=== PATIENT | female | born 1940 | race Caucasian/White ===

== ENCOUNTER 2021-11-10 11:25 | Emergency (ER) | payer MEDICARE | END 2021-11-10 13:16 | disposition home or self-care (01) | LOC: ERS 11:25 | DX: S61.412A Laceration without foreign body of left hand, initial encounter (principal); S00.03XA Contusion of scalp, initial encounter; M25.511 Pain in right shoulder; I25.2 Old myocardial infarction; E11.9 Type 2 diabetes mellitus without complications; E78.5 Hyperlipidemia, unspecified; I10 Essential (primary) hypertension; Z79.899 Other long term (current) drug therapy; W19.XXXA Unspecified fall, initial encounter | CPT/HCPCS: 12002; 70450; 72125 ==

== ENCOUNTER 2022-01-22 11:08 | Outpatient (CLI) | payer MEDICARE ==
[~2022-01-22 11:08] MED LIST: Iopamidol 370 76% 100 ML VIAL ONE
== END 2022-01-22 11:09 | disposition home or self-care (01) ==
LOC: BICCT 11:08 → RAD 11:09
PROVIDERS: ATTEND Internal Medicine Cardiovascular Disease
DX: I71.2 Thoracic aortic aneurysm, without rupture (principal); I71.4 Abdominal aortic aneurysm, without rupture; R91.1 Solitary pulmonary nodule; E04.1 Nontoxic single thyroid nodule
CPT/HCPCS: 71275; Q9967

== ENCOUNTER 2022-04-28 09:41 | Emergency (ER) | payer MEDICARE ==
[2022-04-28 10:09] LABS: #Basophils 0.1 thou/uL (0.0-0.2); #Eosinphils 0.1 thou/uL (0.0-0.7); #Lymphocytes 1.4 thou/uL (1.20-3.40); #Monocytes 0.5 thou/uL (0.11-0.59); #Neutrophils 4.7 thou/uL (1.40-6.50); %Basophils 1.2 % (0.0-1.0); %Eosinophils 2.1 % (0.0-10.0); %Lymphocytes 20.2 % (21.0-51.0); %Monocytes 7.1 % (0.0-10.0); %Neutrophils 69.3 % (42.0-75.0); Hemoglobin 14.1 g/dL (12.0-16.0); Mean Corpuscular HGB CONC 34.3 g/dL (32.0-36.0); Mean Corpuscular Hemoglobin 33.8 pg (27.0-31.0); Mean Corpuscular Volume 98.6 fl (78.0-98.0); Mean Platelet Volume 5.4 fL (7.4-10.4); Platelet Count 249 10x3/uL (130-400); RBC Distribution Width 11.6 % (11.5-14.5); Red Blood Cell (RBC) Count 4.15 mill/uL (4.20-5.40); White Blood Cell (WBC) Count 6.8 10x3/uL (4.8-10.8)
[2022-04-28 11:04] LABS: ALT (SGPT) 7 U/L (8-55); AST (SGOT) 11 U/L (5-34); Albumin 4.1 g/dL (3.4-4.8); Alkaline Phosphatase 45 U/L (40-110); Anion Gap 17 mmol/L (10-20); BUN (Urea Nitrogen) 6 mg/dL (9.8-20.1); Calc. Creatinine Clearance 0 mL/min (70-130); Calcium 9.1 mg/dL (7.8-10.44); Carbon Dioxide 24 mmol/L (23-31); Chloride 85 mmol/L (98-107); Estimated GFR 76; Globulin 2.6 g/dL (2.4-3.5); Glucose 122 mg/dL (83-110); Potassium 3.6 mmol/L (3.5-5.1); Protein, Total 6.7 g/dL (5.8-8.1); Sodium 122 mmol/L (136-145)
[2022-04-28 12:39] LABS: Bacteria/HPF None Seen HPF (None Seen); Bilirubin Negative (Negative); Blood, Urine Trace (Negative); Clarity Clear (Clear); Glucose, Urine (Dipstick) Normal (Negative); Ketone, Urine 100 mg/dL (Negative); Leukocyte 25 Leu/uL (Negative); Nitrite Negative (Negative); Protein, Urine (Dipstick) 20 mg/dL (Neg-Trace); RBC/HPF 0-3 HPF (0-3); Specific Gravity, Urine 1.016 (1.002-1.036); Urobilinogen Normal mg/dL (Less than 2); WBC/HPF 0-3 HPF (0-3); pH, Urine 5.5 (5.0-9.0)
== END 2022-04-28 13:15 | disposition home or self-care (01) ==
LOC: ERS 09:41
DX: R53.1 Weakness (principal); E11.9 Type 2 diabetes mellitus without complications; I10 Essential (primary) hypertension; E78.5 Hyperlipidemia, unspecified; Z79.84 Long term (current) use of oral hypoglycemic drugs; Z79.899 Other long term (current) drug therapy
CPT/HCPCS: 36415; 70450; 71045; 80053; 81003; 81015; 84484; 85025; 93005

== ENCOUNTER 2022-05-06 16:01 | Outpatient (CLI) | payer MEDICARE ==
[2022-05-06 17:13] LABS: #Eosinphils 0.4 10x3/uL (0.0-0.5); #Monocytes 0.5 10x3/uL (0.0-1.1); #Neutrophils 5.7 10x3/uL (1.5-8.4); %Basophils 0.5 % (0.0-2.0); %Eosinophils 4.3 % (0.0-6.0); %Lymphocytes 17.7 % (18.0-47.0); %Monocytes 6.7 % (0.0-10.0); %Neutrophils 70.3 % (40.0-75.0); Hemoglobin 12.5 g/dL (12.0-15.5); Mean Corpuscular HGB CONC 34.2 g/dL (32.0-36.0); Mean Corpuscular Hemoglobin 33.1 pg (27.0-33.0); Mean Corpuscular Volume 96.6 fl (81.6-98.3); Mean Platelet Volume 8.3 fl (7.4-10.4); Platelet Count 376 10x3/uL (150-450); RBC Distribution Width 12.2 % (11.5-14.5); Red Blood Cell (RBC) Count 3.78 10x6/uL (3.90-5.03); White Blood Cell (WBC) Count 8.1 10x3/uL (3.5-10.5)
[2022-05-06 17:26] LABS: Prothrombin Time 10.9 sec (9.5-12.1)
[2022-05-06 17:40] LABS: Anion Gap 15 mmol/L (10-20); BUN (Urea Nitrogen) 11 mg/dL (9.8-20.1); Calc. Creatinine Clearance 0 mL/min (70-130); Calcium 9.9 mg/dL (7.8-10.44); Carbon Dioxide 26 mmol/L (23-31); Chloride 97 mmol/L (98-107); Estimated GFR 48; Glucose 143 mg/dL (83-110); Potassium 4.1 mmol/L (3.5-5.1); Sodium 134 mmol/L (136-145)
== END 2022-05-06 16:02 | disposition home or self-care (01) ==
LOC: LABBT 16:01
PROVIDERS: ATTEND Orthopaedic Surgery
DX: Z01.812 Encounter for preprocedural laboratory examination (principal)
CPT/HCPCS: 80048; 85025; 85610; 87081

== ENCOUNTER 2022-05-12 06:00 | Inpatient (IN) | payer MEDICARE ==
[2022-05-10 12:50] VITALS: BMI 28.1
[2022-05-12] MEDS ORDERED: fentaNYL PF 100 MCG/2 ML SYRINGE ONE ×4 (06:16→09:59)
[2022-05-12] MEDS ORDERED: Midazolam HCl 2 mg/2 ml Vial ONE (06:16)
[2022-05-12] MEDS ORDERED: Tranexamic Acid 1,000 MG/10 ML VIAL ONE (06:30)
[2022-05-12] MEDS ORDERED: Vancomycin 1 GM/200 ML (FROZEN) BAG ONE (06:30)
[2022-05-12] MEDS ORDERED: Sodium Chloride 0.9% 100 ML ONE ×2 (06:30→07:00)
[2022-05-12] MEDS ORDERED: Bupivacaine PF 0.5% 30 ML VIAL ONE (06:53)
[2022-05-12] MEDS ORDERED: PROPOFOL 200 MG/20 ML VIAL ONE (06:57)
[2022-05-12] MEDS ORDERED: Ondansetron PF 4 MG/2 ML Vial ONE (06:57)
[2022-05-12] MEDS ORDERED: Metoclopramide HCl 10 MG/2 ML VIAL ONE (06:57)
[2022-05-12] MEDS ORDERED: Esmolol 100 MG/10 ML VIAL ONE (06:57)
[2022-05-12] MEDS ORDERED: CEFAZOLIN 2 GM VIAL ONE (07:00)
[2022-05-12] MEDS ORDERED: Ropivacaine 0.5% HCl/PF (150 MG/30 ML VIAL) ONE ×2 (07:19→08:58)
[2022-05-12 07:24] LABS: SARS-CoV-2 NAA Rapid Test Not Detected (NotDetected)
[2022-05-12] MEDS ORDERED: Ondansetron PF 4 MG/2 ML Vial IVP PRN (08:15)
[2022-05-12] MEDS ORDERED: Zolpidem Tartrate 5 MG TAB PO PRN (08:15)
[2022-05-12] MEDS ORDERED: Promethazine HCl 25 MG/ML VIAL IM PRN ×2 (08:15→08:23)
[2022-05-12] MEDS ORDERED: traMADol HCl 50 MG TAB PO PRN ×2 (08:15)
[2022-05-12] MEDS ORDERED: Ropivacaine 0.2% 550 ML 550 ML NERVE BLCK SCH (08:15)
[2022-05-12] MEDS ORDERED: FENTANYL 50 MCG/ML 1 ML VIAL SLOW IVP PRN (08:18)
[2022-05-12] MEDS ORDERED: Ondansetron HCl/PF 4 MG/2 ML Vial IVP PRN (08:23)
[2022-05-12] MEDS ORDERED: Promethazine HCl 25 MG/ML VIAL IVPB PRN (08:23)
[2022-05-12] MEDS ORDERED: diphenhydrAMINE 25 MG CAP PO PRN (09:35)
[2022-05-12] MEDS ORDERED: Nitroglycerin 0.4 MG TAB (25 Tab Bottle) SL PRN (11:54)
[2022-05-12] MEDS ORDERED: Ketorolac Tromethamine 30 MG/ML VIAL IVP SCH (12:00)
[2022-05-12] MEDS: Acetaminophen 325 MG TAB PO PRN (13:14)
[2022-05-12] MEDS: HYDROcodone/Acetaminophen 10/325 mg Tablet PO PRN ×2 (17:00→21:45)
[2022-05-12] MEDS ORDERED: metFORMIN 500 MG TAB PO SCH (17:00)
[2022-05-12] MEDS: metFORMIN 500 MG TAB PO SCH (17:01)
[2022-05-12] MEDS: CEFAZOLIN 2 GM in Sodium Chloride 0.9% 100 ML IVPB SCH (17:01)
[2022-05-12] MEDS: Sodium Chloride 0.9% 1,000 ML IV SCH ×2 (17:01→21:39)
[2022-05-12] MEDS ORDERED: Vancomycin 1 GM in Premix Bag 1 BAG IVPB SCH (20:00)
[2022-05-12] MEDS ORDERED: Metoprolol Tartrate 50 MG TAB PO SCH (21:00)
[2022-05-12] MEDS ORDERED: Apixaban 2.5 MG TAB PO SCH (21:00)
[2022-05-12] MEDS: Metoprolol Tartrate 50 MG TAB PO SCH (21:46)
[2022-05-13] MEDS: CEFAZOLIN 2 GM in Sodium Chloride 0.9% 100 ML IVPB SCH (00:53)
[2022-05-13] MEDS: Acetaminophen 325 MG TAB PO PRN (00:55)
[2022-05-13] MEDS: ALPRAZolam 0.25 MG TAB PO PRN (00:55)
[2022-05-13] MEDS: Sodium Chloride 0.9% 1,000 ML IV SCH ×2 (05:19→16:55)
[2022-05-13] MEDS: Ferrous Gluconate 324 MG TAB PO SCH ×2 (08:22→17:38)
[2022-05-13] MEDS: Multivitamin W/ Minerals 1 TAB PO SCH (08:22)
[2022-05-13] MEDS: Metoprolol Tartrate 50 MG TAB PO SCH ×2 (08:22→20:59)
[2022-05-13] MEDS: Senokot S 8.6-50 MG TAB PO SCH ×2 (08:22→20:58)
[2022-05-13] MEDS: Ezetimibe 10 MG TAB PO SCH (08:22)
[2022-05-13] MEDS: Losartan 25 MG TAB PO SCH (08:22)
[2022-05-13] MEDS: Allopurinol 100 MG TAB PO SCH (08:22)
[2022-05-13] MEDS: Rosuvastatin 5 MG TAB PO SCH (08:23)
[2022-05-13 08:42] LABS: Hemoglobin 12.3 g/dL (12.0-16.0); Mean Corpuscular HGB CONC 34.1 g/dL (32.0-36.0); Mean Corpuscular Hemoglobin 34.2 pg (27.0-31.0); Mean Platelet Volume 5.8 fL (7.4-10.4); Platelet Count 275 10x3/uL (130-400); RBC Distribution Width 11.8 % (11.5-14.5); Red Blood Cell (RBC) Count 3.59 mill/uL (4.20-5.40); White Blood Cell (WBC) Count 9.3 10x3/uL (4.8-10.8)
[2022-05-13] MEDS ORDERED: Losartan 25 MG TAB PO SCH (09:00)
[2022-05-13] MEDS ORDERED: Allopurinol 100 MG TAB PO SCH (09:00)
[2022-05-13] MEDS ORDERED: Rosuvastatin 5 MG TAB PO SCH (09:00)
[2022-05-13] MEDS: Apixaban 2.5 MG TAB PO SCH ×2 (09:58→20:59)
[2022-05-13] MEDS: HYDROcodone/Acetaminophen 10/325 mg Tablet PO PRN ×2 (09:58→17:37)
[2022-05-13] MEDS: metFORMIN 500 MG TAB PO SCH (17:38)
[2022-05-14] MEDS: Sodium Chloride 0.9% 1,000 ML IV SCH ×3 (01:40→22:57)
[2022-05-14 05:06] LABS: Hemoglobin 11.6 g/dL (12.0-16.0); Mean Corpuscular HGB CONC 31.8 g/dL (32.0-36.0); Mean Platelet Volume 6.2 fL (7.4-10.4); Platelet Count 282 10x3/uL (130-400); RBC Distribution Width 11.5 % (11.5-14.5); Red Blood Cell (RBC) Count 3.61 mill/uL (4.20-5.40); White Blood Cell (WBC) Count 12.1 10x3/uL (4.8-10.8)
[2022-05-14] MEDS: Ferrous Gluconate 324 MG TAB PO SCH ×2 (09:11→16:43)
[2022-05-14] MEDS: Apixaban 2.5 MG TAB PO SCH ×2 (09:12→21:27)
[2022-05-14] MEDS: Senokot S 8.6-50 MG TAB PO SCH ×2 (09:12→21:27)
[2022-05-14] MEDS: HYDROcodone/Acetaminophen 10/325 mg Tablet PO PRN ×2 (09:12→16:43)
[2022-05-14] MEDS: Rosuvastatin 5 MG TAB PO SCH (09:13)
[2022-05-14] MEDS: Metoprolol Tartrate 50 MG TAB PO SCH ×2 (09:13→21:27)
[2022-05-14] MEDS: Allopurinol 100 MG TAB PO SCH (09:13)
[2022-05-14] MEDS: Ezetimibe 10 MG TAB PO SCH (09:13)
[2022-05-14] MEDS: Losartan 25 MG TAB PO SCH (09:13)
[2022-05-14] MEDS: Multivitamin W/ Minerals 1 TAB PO SCH (09:13)
[2022-05-14] MEDS: metFORMIN 500 MG TAB PO SCH (16:43)
[2022-05-15] MEDS: HYDROcodone/Acetaminophen 10/325 mg Tablet PO PRN ×3 (02:00→18:25)
[2022-05-15 06:00] LABS: Hemoglobin 10.7 g/dL (12.0-16.0); Mean Corpuscular HGB CONC 32.6 g/dL (32.0-36.0); Mean Platelet Volume 6.1 fL (7.4-10.4); Platelet Count 281 10x3/uL (130-400); RBC Distribution Width 11.5 % (11.5-14.5); Red Blood Cell (RBC) Count 3.26 mill/uL (4.20-5.40); White Blood Cell (WBC) Count 8.6 10x3/uL (4.8-10.8)
[2022-05-15] MEDS: Sodium Chloride 0.9% 1,000 ML IV SCH ×2 (08:19→16:41)
[2022-05-15] MEDS: Ferrous Gluconate 324 MG TAB PO SCH ×2 (08:26→16:40)
[2022-05-15] MEDS: Apixaban 2.5 MG TAB PO SCH ×2 (08:27→21:07)
[2022-05-15] MEDS: Senokot S 8.6-50 MG TAB PO SCH ×2 (08:27→21:04)
[2022-05-15] MEDS: Allopurinol 100 MG TAB PO SCH (08:27)
[2022-05-15] MEDS: Rosuvastatin 5 MG TAB PO SCH (08:27)
[2022-05-15] MEDS: Losartan 25 MG TAB PO SCH (08:27)
[2022-05-15] MEDS: Ezetimibe 10 MG TAB PO SCH (08:27)
[2022-05-15] MEDS: Multivitamin W/ Minerals 1 TAB PO SCH (08:27)
[2022-05-15] MEDS: Metoprolol Tartrate 50 MG TAB PO SCH ×2 (08:31→21:04)
[2022-05-15] MEDS: metFORMIN 500 MG TAB PO SCH (16:40)
[2022-05-15] MEDS: ALPRAZolam 0.25 MG TAB PO PRN (21:07)
[2022-05-16] MEDS: HYDROcodone/Acetaminophen 10/325 mg Tablet PO PRN ×2 (00:32→10:11)
[2022-05-16] MEDS: Sodium Chloride 0.9% 1,000 ML IV SCH ×2 (00:59→11:49)
[2022-05-16 05:52] LABS: Hemoglobin 11.1 g/dL (12.0-16.0); Mean Corpuscular HGB CONC 32.2 g/dL (32.0-36.0); Mean Corpuscular Hemoglobin 32.7 pg (27.0-31.0); Mean Platelet Volume 5.9 fL (7.4-10.4); Platelet Count 316 10x3/uL (130-400); RBC Distribution Width 11.6 % (11.5-14.5); Red Blood Cell (RBC) Count 3.41 mill/uL (4.20-5.40); White Blood Cell (WBC) Count 7.6 10x3/uL (4.8-10.8)
[2022-05-16] MEDS: Rosuvastatin 5 MG TAB PO SCH (07:54)
[2022-05-16] MEDS: Ezetimibe 10 MG TAB PO SCH (07:54)
[2022-05-16] MEDS: Apixaban 2.5 MG TAB PO SCH ×2 (07:54→22:32)
[2022-05-16] MEDS: Multivitamin W/ Minerals 1 TAB PO SCH (07:56)
[2022-05-16] MEDS: Ferrous Gluconate 324 MG TAB PO SCH ×2 (07:56→17:01)
[2022-05-16] MEDS: Senokot S 8.6-50 MG TAB PO SCH ×2 (07:57→22:32)
[2022-05-16] MEDS: Allopurinol 100 MG TAB PO SCH (07:58)
[2022-05-16] MEDS: Losartan 25 MG TAB PO SCH (07:59)
[2022-05-16] MEDS: Metoprolol Tartrate 50 MG TAB PO SCH ×2 (07:59→22:32)
[2022-05-16] MEDS: metFORMIN 500 MG TAB PO SCH (17:01)
[2022-05-17] MEDS: Sodium Chloride 0.9% 1,000 ML IV SCH ×2 (01:03→09:51)
[2022-05-17] MEDS: ALPRAZolam 0.25 MG TAB PO PRN (01:14)
[2022-05-17 06:55] LABS: Hemoglobin 10.6 g/dL (12.0-16.0); Mean Corpuscular HGB CONC 32.6 g/dL (32.0-36.0); Mean Corpuscular Hemoglobin 33.1 pg (27.0-31.0); Mean Platelet Volume 6.2 fL (7.4-10.4); Platelet Count 378 10x3/uL (130-400); RBC Distribution Width 11.6 % (11.5-14.5); White Blood Cell (WBC) Count 7.5 10x3/uL (4.8-10.8)
[2022-05-17] MEDS: Multivitamin W/ Minerals 1 TAB PO SCH (09:50)
[2022-05-17] MEDS: Rosuvastatin 5 MG TAB PO SCH (09:50)
[2022-05-17] MEDS: Ferrous Gluconate 324 MG TAB PO SCH ×2 (09:50→16:56)
[2022-05-17] MEDS: Metoprolol Tartrate 50 MG TAB PO SCH ×2 (09:50→21:55)
[2022-05-17] MEDS: Apixaban 2.5 MG TAB PO SCH ×2 (09:50→21:55)
[2022-05-17] MEDS: Allopurinol 100 MG TAB PO SCH (09:51)
[2022-05-17] MEDS: Senokot S 8.6-50 MG TAB PO SCH ×2 (09:51→21:55)
[2022-05-17] MEDS: Ezetimibe 10 MG TAB PO SCH (09:51)
[2022-05-17] MEDS: Losartan 25 MG TAB PO SCH (09:51)
[2022-05-17] MEDS: Acetaminophen 325 MG TAB PO PRN ×3 (11:22→21:55)
[2022-05-17] MEDS: metFORMIN 500 MG TAB PO SCH (16:57)
[2022-05-18] MEDS: Sodium Chloride 0.9% 1,000 ML IV SCH ×2 (06:40→09:43)
[2022-05-18 08:27] VITALS: BP 150/86; TEMP 97.2
[2022-05-18] MEDS: Acetaminophen 325 MG TAB PO PRN (09:29)
[2022-05-18] MEDS: Metoprolol Tartrate 50 MG TAB PO SCH (09:30)
[2022-05-18] MEDS: Ezetimibe 10 MG TAB PO SCH (09:30)
[2022-05-18] MEDS: Losartan 25 MG TAB PO SCH (09:30)
[2022-05-18] MEDS: Allopurinol 100 MG TAB PO SCH (09:30)
[2022-05-18] MEDS: Multivitamin W/ Minerals 1 TAB PO SCH (09:31)
[2022-05-18] MEDS: Apixaban 2.5 MG TAB PO SCH (09:31)
[2022-05-18] MEDS: Rosuvastatin 5 MG TAB PO SCH (09:31)
[2022-05-18] MEDS: Ferrous Gluconate 324 MG TAB PO SCH (09:31)
[2022-05-18] MEDS: Senokot S 8.6-50 MG TAB PO SCH (09:43)
== END 2022-05-18 11:15 | DRG 470 ==
LOC: SDC 06:00 → SJJU 09:35
PROVIDERS: ADMIT Orthopaedic Surgery; ATTEND Orthopaedic Surgery
PROC: 0SRD0J9 Replacement of Left Knee Joint with Synthetic Substitute, Cemented, Open Approach (ICD-10-PCS; principal; 2022-05-12)
DX: M17.12 Unilateral primary osteoarthritis, left knee (principal); Z20.822 Contact with and (suspected) exposure to COVID-19; M81.0 Age-related osteoporosis without current pathological fracture; I25.10 Atherosclerotic heart disease of native coronary artery without angina pectoris; I10 Essential (primary) hypertension; E78.5 Hyperlipidemia, unspecified; E11.9 Type 2 diabetes mellitus without complications; Z96.651 Presence of right artificial knee joint; D75.89 Other specified diseases of blood and blood-forming organs; M10.9 Gout, unspecified; I71.20 Thoracic aortic aneurysm, without rupture, unspecified; Z79.899 Other long term (current) drug therapy; Z79.02 Long term (current) use of antithrombotics/antiplatelets; Z86.718 Personal history of other venous thrombosis and embolism; Z91.040 Latex allergy status; Z79.84 Long term (current) use of oral hypoglycemic drugs; Z90.710 Acquired absence of both cervix and uterus; Z90.49 Acquired absence of other specified parts of digestive tract; Z98.49 Cataract extraction status, unspecified eye; Z98.1 Arthrodesis status
CPT/HCPCS: 36415; 36416; 82607; 85027; A4306; C1713; C1776; J2250; J2405; J2704; J2765; J2795; J3370; J3370-JW; J3490; J7050; S0020; U0002

== ENCOUNTER 2022-08-19 10:25 | Outpatient (CLI) | payer MEDICARE | END 2022-08-19 10:26 | disposition home or self-care (01) | LOC: CT 10:25 → BICCT 10:26 | PROVIDERS: ATTEND Internal Medicine Cardiovascular Disease | DX: I71.20 Thoracic aortic aneurysm, without rupture, unspecified (principal) | CPT/HCPCS: 71275; 82565 ==

== ENCOUNTER 2022-09-27 15:52 | Outpatient (CLI) | payer MEDICARE | END 2022-09-27 15:53 | disposition home or self-care (01) | LOC: BICMAMMO 15:52 | PROVIDERS: ATTEND Family Medicine | DX: Z12.31 Encounter for screening mammogram for malignant neoplasm of breast (principal); Z80.3 Family history of malignant neoplasm of breast | CPT/HCPCS: 77063; 77067 ==

== ENCOUNTER 2022-11-22 12:53 | Outpatient (CLI) | payer MEDICARE | END 2022-11-22 12:54 | disposition home or self-care (01) | LOC: RAD 12:53 | PROVIDERS: ATTEND Internal Medicine Rheumatology | DX: M25.541 Pain in joints of right hand (principal); M25.542 Pain in joints of left hand ==